=== PATIENT | female | born 1980 | race Two or more races ===

== ENCOUNTER 2019-03-20 20:33 | Inpatient (IN) | payer MEDICAID, MEDICARE ==
[~2019-03-20] VITALS: Ht 154.9 cm; Wt 83.4 kg
[2019-03-20] MEDS ORDERED: acetaminophen 325mg tablet PO PRN ×2 (21:25)
[2019-03-20] MEDS ORDERED: loperamide 2mg capsule PO PRN (21:25)
[2019-03-20] MEDS ORDERED: magnesium hydroxide 30ml (MOM) UD suspension PO PRN (21:25)
[2019-03-20] MEDS ORDERED: mag hydrox/Alum hydrox/simeth 30ml oral suspension PO PRN (21:25)
[2019-03-20 21:30] VITALS: BP 116/78
[2019-03-20] MEDS ORDERED: PREN1TAB75 PO (22:18)
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
[2019-03-21 07:34] VITALS: BP 112/70
[2019-03-21] MEDS: PNV NO.63/IRON,CARBONYL/FA/DHA 1 EACH CAPSULE PO SCH (08:22)
[2019-03-21] MEDS ORDERED: sertraline 25mg tablet PO ONE (08:25)
[2019-03-21 12:30] LABS: HEMOGLOBIN A1C 5.2 % (4.5-6.2)
[2019-03-21 12:45] LABS: CHOL/HDL RATIO 2.9 (0.00-4.99); CHOLESTEROL 180 MG/DL (0-200); HDL CHOLESTEROL 63 MG/DL (35-60); LDL CHOLESTEROL 92 MG/DL (50-100); TRIGLYCERIDES 201 MG/DL (20-135)
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
[2019-03-21 20:00] VITALS: BP 117/80
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
[2019-03-22 08:00] VITALS: BP 97/62
[2019-03-22] MEDS: PNV NO.63/IRON,CARBONYL/FA/DHA 1 EACH CAPSULE PO SCH (08:11)
[2019-03-22] MEDS: sertraline 25mg tablet PO SCH (08:11)
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
--- NOTE | 2019-03-22 15:08 | NUR ---
Nursing Progress Note: Legal hold: 5150 Exp 03/23 @ 2100 Client on involuntary status for DTS. Report received from nurse Trudy OCONNOR with use of SBAR. Why are they here: Pt presented [facility]. Pt had a change of behavior shortly following evaluation while attempting to safety plan. Pt reports she does not feel she would be safe if she were to leave the ED. Pt's plan is to OD on Ibuprofen. Pt became emotional and was unable to articulate a plan for food, fci or clothing. Pt has a history of suicide attempts. Assessment What has happened this shift: Pt continues to feel depressed though states she is feeling "better," she denies SI. Pt stated that she told her that he could come and pick her up. Pt stated that her went to [place] without her. "They always do fun things when I'm not there, like go to [employer]." "I told him, see? You needed to do something as a family, it's better if I'm not there." Pt stated that she is a lot older than her . Asked her how old he is, she replied, "29." Spoke with pt about her dog. The story she told was somewhat disorganized. Per noc shift report, pt had stated that her dog 5 days ago. Pt told this RN that both of her dogs ran off. She stated that they usually stay in the yard but sometimes they will follow people. Pt described the dogs as pitbull mixes. Pt stated that one dog came back but the other did not. (Yesterday she had told this RN that the dog was at the pound and her would not take her to go get it.) Asked pt if she had called the fci. Pt paused then said that the neighbor's cat had been killed. She said her dogs mohsen cats. She said they have a cat and they have to keep the dogs away from it. Pt laughed and then said one time the dog picked a kitten up in it's mouth, pt indicated that the kitten was not harmed. Pt reported showering last evening, she was cooperative with medication, and attended groups. S/I, H/I: Pt denies A/VH: Pt denies Sleep: Slept 6.75 hours per noc shift report ADL's: Independent Group attendance: Yes Were meds taken: Yes Any med S/E: None noted or reported. Mental Status Exam Appearance: Neat, clean Eye contact: Good Behavior: Pleasant, cooperative Speech: Clear, soft Mood: Depressed Affect: Blunted, somewhat guarded Thought process: Circumstantial, ruminates, somewhat disorganized Thought Content: Her feelings are hurt because her and his family went to [place] without her while she was in the hospital, sad about her dog Cognition: A/O X 4 Insight: Poor Judgment: Fair Interventions PRN's used: None Therapeutic interventions: 1:1 assessment, active listening, therapeutic conversation, medication administration/monitoring/education, encouragement to attend groups, Q15 min safety checks. Restraints/seclusion/emergency medication: N/A Justification of Continued Inpatient Treatment: Pt needs interruption of current crisis with initiation and adjustment of medication in a safe and therapeutic environment, as well as formulation of a safe discharge plan.
[2019-03-22 19:00] VITALS: BP 115/76
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
[2019-03-23 08:00] VITALS: BP 109/57
[2019-03-23] MEDS: PNV NO.63/IRON,CARBONYL/FA/DHA 1 EACH CAPSULE PO SCH (08:34)
[2019-03-23] MEDS: sertraline 25mg tablet PO SCH (08:34)
--- NOTE | 2019-03-23 11:13 | NUR ---
Nurse note: Called Dr Spears office to request to eval pt due to [address] Jara will not be in office until Tuesday. Pt states she has followed up with all her visits and has had 3 ultrasounds of baby and told that baby is healthy. Pt states she also has another appt for follow up.
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
--- NOTE | 2019-03-23 13:34 | NUR ---
DISCHARGE PLANNING Met with Ct to discuss d/c plan. She reported she wants to go stay with her parents in [place]. Discussed Ct signing voluntary while she awaits a bed at [facility] as that may be an option. She did not seem to understand the concept of staying voluntarily to go to [facility]. She denied any current SI. Discussed safety planning in the event that SI returns. Ct was able to articulate what she needs to do to change her Medi-anna. She reported her parents can help her go to appointments. Suggested she follow up with an [facility] in [place]. Called Ct's parents, Johnathan and Esthela (ph# [phone]), and they reported the can meat pickler Ct today. They reported they can assist Ct with connecting to [facility] [facility] care and mental health. They are supposed to call science writer back to given an ETA on their arrival. NEELIMA Robles
[2019-03-23] MEDS ORDERED: SERT25TA5 PO (13:50)
[2019-03-23] MEDS ORDERED: PREN1TAB75 PO (13:50)
--- NOTE | 2019-03-23 15:36 | NUR ---
Nursing Progress Note: Legal hold: 5150 Exp 03/23 @ 2100 Client on involuntary status for DTS. Report received from nurse Simran OCONNOR with use of SBAR. Why are they here: Pt presented to [facility]. Pt had a change of behavior shortly following evaluation while attempting to safety plan. Pt reports she does not feel she would be safe if she were to leave the ED. Pt's plan is to OD on Ibuprofen. Pt became emotional and was unable to articulate a plan for food, snf or clothing. Pt has a history of suicide attempts. Assessment What has happened this shift: Pt states her depression is better, denies SI. Pt wants to go and stay with her parents in [place]. Pt signed an TACHO for SW to speak with mom and dad. Parents were contacted and they plan to come and pick her up and take her home with them this afternoon. S/I, H/I: Pt denies A/VH: Pt denies Sleep: Slept 5 hours per noc shift report ADL's: Independent Group attendance: Yes Were meds taken: Yes Any med S/E: None noted or reported. Mental Status Exam Appearance: Neat, clean, wears glasses, dressed in street clothes Eye contact: Good Behavior: Pleasant, cooperative Speech: Clear, soft Mood: "better" Affect: Blunted, somewhat guarded Thought process: Somewhat disorganized speech, circumstantial, has difficulty understanding/some reality distortion. Thought Content: Wants to discharge to [place] with her parents. Cognition: A/O X 4 Insight: Poor Judgment: Fair Interventions PRN's used: None Therapeutic interventions: 1:1 assessment, active listening, therapeutic conversation, medication administration/monitoring/education, encouragement to attend groups, Q15 min safety checks. Restraints/seclusion/emergency medication: N/A Justification of Continued Inpatient Treatment: Pt has been started on antidepressant Zoloft, she has been given a paper RX. Pt is being discharged today to go and stay with her parents in [place]. Awaiting parents' arrival.
[2019-03-23 19:00] VITALS: BP 126/67
--- NOTE | 2019-03-23 19:13 | NUR ---
Discharge note: Pt walked out with family and . All her belonging were returned to her. She is to go to live with her family in [place]. All paperwork and discharge instructions were given by day time nurse. Addendum: 03/23/19 at 2001 by Simran Queen RN Pt left in private vehicle. She appeared to be happy about going to her parents and her mood was good, saying bye to all the other patients in the units. A&O X4.
== END 2019-03-23 19:30 | disposition home or self-care (01) | DRG 566 ==
LOC: ADULT MH 21:10
PROVIDERS: ADMIT Psychiatry & Neurology Psychiatry; ATTEND Psychiatry & Neurology Psychiatry
DX: O99.342 Other mental disorders complicating pregnancy, second trimester (principal); R45.851 Suicidal ideations; F33.2 Major depressive disorder, recurrent severe without psychotic features; F20.9 Schizophrenia, unspecified; Z3A.00 Weeks of gestation of pregnancy not specified
CPT/HCPCS: 36415; 80061; 82948; 83036; 87081; 99285